=== PATIENT | male | born 1955 ===

== ENCOUNTER 2024-06-27 09:01 | Outpatient (REF) | payer OTHER, SELFPAY | END 2024-06-27 09:02 | disposition home or self-care (01) | LOC: HO.SH 09:01 | PROVIDERS: Visit Provider Family Medicine | DX: Z01.118 Encounter for examination of ears and hearing with other abnormal findings (principal); H90.3 Sensorineural hearing loss, bilateral; H93.13 Tinnitus, bilateral | CPT/HCPCS: 92557 ==